=== PATIENT | female | born 1965 ===

== ENCOUNTER 2020-03-11 11:46 | Outpatient (CLI) | payer OTHER ==
[~2020-03-11 11:46] MED LIST: ATROVENT 00.5 MG/2.5 IH; DULCOLAX STOOL100 MG PO; INTESTINEX1 CAP PO; LEVAQUIN500 MG PO; MELOXICAM7.5 MG; PEPCID20 MG PO; SORBUTUSS LIQU473 ML PO; SYNTHROID50 MCG
== END 2020-03-11 12:30 | disposition home or self-care (01) ==
LOC: OFIC 805 11:46
PROVIDERS: ATTEND Otolaryngology
DX: G47.33 Obstructive sleep apnea (adult) (pediatric) (principal); J32.8 Other chronic sinusitis; R09.81 Nasal congestion; H90.3 Sensorineural hearing loss, bilateral; H68.013 Acute Eustachian salpingitis, bilateral

== ENCOUNTER → 2020-04-28 | Outpatient (CLI) | payer OTHER | END | disposition home or self-care (01) | LOC: OFIC 805 03-31 15:15 | PROVIDERS: ATTEND Otolaryngology | DX: R09.81 Nasal congestion (principal); J32.8 Other chronic sinusitis; G44.89 Other headache syndrome ==

== ENCOUNTER 2021-01-21 13:45 | Outpatient (CLI) | payer OTHER | END 2021-01-21 14:03 | disposition home or self-care (01) | LOC: MRI 13:45 | PROVIDERS: ATTEND Otolaryngology | DX: M48.07 Spinal stenosis, lumbosacral region (principal); G47.419 Narcolepsy without cataplexy; G93.89 Other specified disorders of brain | CPT/HCPCS: 70544; 72148 ==

== ENCOUNTER 2021-03-16 08:18 | Outpatient (CLI) | payer OTHER | END 2021-03-16 08:41 | disposition home or self-care (01) | LOC: RAD 08:18 → TOM 09:15 | PROVIDERS: ATTEND Orthopaedic Surgery Sports Medicine | DX: K57.90 Diverticulosis of intestine, part unspecified, without perforation or abscess without bleeding (principal); S83.242A Other tear of medial meniscus, current injury, left knee, initial encounter; E04.2 Nontoxic multinodular goiter; R10.33 Periumbilical pain | CPT/HCPCS: 73562; 73721; 74177; 76536; Q9965 ==

== ENCOUNTER 2021-04-15 14:47 | Outpatient (CLI) | payer OTHER | END 2021-04-15 14:51 | disposition home or self-care (01) | LOC: RAD 14:47 | DX: M54.14 Radiculopathy, thoracic region (principal) ==